=== PATIENT | female | born 1935 | race Two or more races ===

== ENCOUNTER 2023-06-23 22:47 | Inpatient (IN) | payer OTHER, MEDICAID ==
[~2023-06-23] VITALS: Ht 160 cm; Wt 79.0 kg
[2023-06-23] MEDS ORDERED: NITROGLYCERIN 0.4 MG SL TAB SL PRN (23:30)
[2023-06-23] MEDS ORDERED: IPRATROPIUM BROM 0.5 MG/2.5ML INH SOL NEB PRN (23:30)
[2023-06-23] MEDS ORDERED: hydrALAZINE HCL 20 MG/ML VL IV PRN (23:30)
[2023-06-23] MEDS ORDERED: MORPHINE SULFATE INJ 2 MG/ml SYRG IV PRN (23:30)
[2023-06-23] MEDS ORDERED: DEXTROSE (50%) 50ML SYRG IV PRN (23:30)
[2023-06-23] MEDS ORDERED: HYDROcodone-ACET 5/325MG TAB PO PRN (23:30)
[2023-06-23] MEDS ORDERED: ALBUTEROL SULF 2.5 MG/0.5ML(0.5%) NEB SOLN NEB PRN (23:30)
[2023-06-23] MEDS ORDERED: DOCUSATE SOD 100 MG CAP PO PRN (23:30)
[2023-06-23] MEDS ORDERED: ONDANSETRON HCL 4 MG/2 ML VIAL IV PRN (23:30)
[2023-06-23] MEDS ORDERED: ACETAMINOPHEN 325 MG TAB PO PRN (23:30)
[2023-06-23 23:54] VITALS: BP 154/74; PULSE 71; PULSE 85; RESP 18; TEMP 97.7
[2023-06-24] VITALS (12 sets, daily range): BP systolic 122–152; BP diastolic 64–71; PULSE 71–81; RESP 16–20; TEMP 97.4–97.8; O2SAT 91–100
[2023-06-24] MEDS ORDERED: cefTRIAXone 1GM/50ML D5W 50 ML IV SCH (00:57)
[2023-06-24] MEDS ORDERED: AZITHROMYCIN 500MG/ 250ML 250 ML IV SCH (02:00)
[2023-06-24] MEDS ORDERED: CEFP200T15 PO (02:38)
[2023-06-24] MEDS ORDERED: NITR1CAP23 GT (02:44)
[2023-06-24] MEDS ORDERED: DAPA1TAB4 PO (02:46)
[2023-06-24] MEDS ORDERED: LABE200T7 PO (02:46)
[2023-06-24] MEDS ORDERED: ASPI81CH59 PO (02:47)
[2023-06-24] MEDS ORDERED: BENZ100C97 PO (02:48)
[2023-06-24] MEDS ORDERED: CHOL20007 PO (02:49)
[2023-06-24] MEDS ORDERED: GLIP10TA21 PO (02:50)
[2023-06-24] MEDS: methylPREDNISolone SOD SUCC 40 MG/ML VL IV SCH ×3 (06:00→22:00)
[2023-06-24 07:09] LABS: BUN/Creatinine Ratio 25.4 (10.0-20.0); Calcium 8.4 mg/dL (8.5-10.1); Potassium 3.6 mmol/L (3.5-5.1)
[2023-06-24] MEDS: FUROSEMIDE 40 MG/4 ML VIAL IV SCH ×2 (07:17→19:00)
[2023-06-24] MEDS: InsuLIN REG 1unit/0.01ml Soln (100units/ml) SC SCH ×3 (07:18→19:01)
[2023-06-24] MEDS: ACCU-CHEK COMFORT CURVE STRIP VI SCH ×3 (07:20→22:10)
[2023-06-24] MEDS ORDERED: ENOXAPARIN SOD 40 MG/0.4 ML SYRINGE SC SCH (10:00)
[2023-06-24] MEDS: PANTOPRAZOLE 40 MG/10 ML VIAL INJ IV SCH (10:18)
[2023-06-24] MEDS: POTASSIUM CHL 20 Meq TABLET PO SCH (10:18)
[2023-06-24 12:29] LABS: Basophils # (auto) 0 10 ^3/uL (0-0.2); Basophils % (auto) 0.1 % (0.0-2.0); Eosinophils # (auto) 0 10 ^3/uL (0-0.8); Eosinophils % (auto) 0.1 % (0.0-7.0); Hematocrit 39.3 % (36.0-46.0); Lymphocytes # (auto) 0.6 10 ^3/uL (0.4-5.4); Lymphocytes % (auto) 5.9 % (10.0-50.0); Mean Corpuscular Hemoglobin 31.9 pg (28.0-32.0); Mean Corpuscular Hgb Conc. 33.1 g/dL (32.0-36.0); Mean Corpuscular Volume 96.4 fL (80.0-100.0); Monocytes # (auto) 0.1 10 ^3/uL (0-1.3); Monocytes % (auto) 1.4 % (0.0-12.0); Neutrophils # (auto) 9.2 10 ^3/uL (1.6-8.6); Neutrophils % (auto) 92.5 % (37.0-80.0); Nucleated Red Blood Cells % 0.1 %; Red Blood Cells 4.08 10^6/uL (4.0-5.20); Red Cell Distribution Width 14.2 % (11.8-14.3); White Blood Cell 9.9 10^3/uL (4.4-10.8)
[2023-06-24] MEDS ORDERED: MULT-1018 PO (17:30)
[2023-06-24 17:56] LABS: Urine Bacteria FEW /hpf (None Seen); Urine Blood Negative /uL (Negative); Urine Clarity Clear (Clear); Urine Color Straw (Yellow); Urine Hyaline Cast FEW /lpf (0 - 2); Urine Protein, UAD Negative (Negative); Urine Specific Gravity 1.019 (1.001-1.035); Urine Urobilinogen Normal (Negative); Urine WBC 1 /hpf (0 - 5)
[2023-06-24] MEDS ORDERED: DEXTROSE (50%) 50ML SYRG IV PRN (18:45)
[2023-06-24] MEDS: ASPirin 81 mg TAB PO SCH (19:00)
[2023-06-24] MEDS: IPRATROPIUM BROM 0.5 MG/2.5ML INH SOL NEB SCH (19:34)
[2023-06-24] MEDS: ALBUTEROL SULF 2.5 MG/0.5ML(0.5%) NEB SOLN NEB SCH (19:34)
[2023-06-24] MEDS ORDERED: InsuLIN REG 1unit/0.01ml Soln (100units/ml) SC SCH (22:00)
[2023-06-24] MEDS: DOXYCYCLINE 100 MG TAB/CAP PO SCH (22:07)
[2023-06-24] MEDS: LABETALOL HCL 200 MG TAB PO SCH (22:10)
[2023-06-25] VITALS (10 sets, daily range): BP systolic 117–125; BP diastolic 61–65; PULSE 70–78; RESP 16–20; TEMP 97.4–97.8; O2SAT 94–99
[2023-06-25] MEDS: methylPREDNISolone SOD SUCC 40 MG/ML VL IV SCH ×2 (05:55→12:27)
[2023-06-25] MEDS: FUROSEMIDE 40 MG/4 ML VIAL IV SCH ×2 (05:55→18:00)
[2023-06-25 06:16] LABS: Basophils # (auto) 0 10 ^3/uL (0-0.2); Basophils % (auto) 0.2 % (0.0-2.0); Eosinophils # (auto) 0 10 ^3/uL (0-0.8); Eosinophils % (auto) 0.1 % (0.0-7.0); Hematocrit 37.5 % (36.0-46.0); Hemoglobin 12.6 g/dL (12.2-16.2); Lymphocytes # (auto) 1.2 10 ^3/uL (0.4-5.4); Lymphocytes % (auto) 8.5 % (10.0-50.0); Mean Corpuscular Hemoglobin 31.8 pg (28.0-32.0); Mean Corpuscular Hgb Conc. 33.7 g/dL (32.0-36.0); Mean Corpuscular Volume 94.4 fL (80.0-100.0); Monocytes # (auto) 1.2 10 ^3/uL (0-1.3); Monocytes % (auto) 8.4 % (0.0-12.0); Neutrophils # (auto) 11.6 10 ^3/uL (1.6-8.6); Neutrophils % (auto) 82.8 % (37.0-80.0); Nucleated Red Blood Cells % 0.1 %; Red Blood Cells 3.98 10^6/uL (4.0-5.20); Red Cell Distribution Width 13.7 % (11.8-14.3)
[2023-06-25 06:30] LABS: Potassium 3.4 mmol/L (3.5-5.1)
[2023-06-25] MEDS: ACCU-CHEK COMFORT CURVE STRIP VI SCH ×3 (06:35→17:00)
[2023-06-25] MEDS: InsuLIN REG 1unit/0.01ml Soln (100units/ml) SC SCH ×3 (06:35→17:00)
[2023-06-25 06:39] LABS: BUN/Creatinine Ratio 46.2 (10.0-20.0); Calcium 8.4 mg/dL (8.5-10.1)
[2023-06-25] MEDS: ALBUTEROL SULF 2.5 MG/0.5ML(0.5%) NEB SOLN NEB SCH ×2 (06:50→12:24)
[2023-06-25] MEDS: IPRATROPIUM BROM 0.5 MG/2.5ML INH SOL NEB SCH ×2 (06:50→12:22)
[2023-06-25] MEDS: PANTOPRAZOLE 40 MG/10 ML VIAL INJ IV SCH (09:26)
[2023-06-25] MEDS: POTASSIUM CHL 20 Meq TABLET PO SCH (09:26)
[2023-06-25] MEDS: DOXYCYCLINE 100 MG TAB/CAP PO SCH (09:26)
[2023-06-25] MEDS: ASPirin 81 mg TAB PO SCH (09:28)
[2023-06-25] MEDS: LABETALOL HCL 200 MG TAB PO SCH (09:28)
[2023-06-25] MEDS ORDERED: OXYB5TAB24 PO (09:59)
[2023-06-25] MEDS ORDERED: SPIR25TA PO (09:59)
[2023-06-28] MEDS ORDERED: CIPR-173 PO (15:36)
== END 2023-06-25 17:30 | disposition home or self-care (01) | DRG 291 ==
LOC: TELE-CENTR 23:08
PROVIDERS: ADMIT Hospitalist; ATTEND Hospitalist
DX: I13.0 Hypertensive heart and chronic kidney disease with heart failure and stage 1 through stage 4 chronic kidney disease, or unspecified chronic kidney disease (principal); I50.31 Acute diastolic (congestive) heart failure; E87.1 Hypo-osmolality and hyponatremia; R06.03 Acute respiratory distress; E66.9 Obesity, unspecified; N18.9 Chronic kidney disease, unspecified; E11.22 Type 2 diabetes mellitus with diabetic chronic kidney disease; Z79.82 Long term (current) use of aspirin; Z79.899 Other long term (current) drug therapy; Z82.5 Family history of asthma and other chronic lower respiratory diseases; Z68.30 Body mass index [BMI] 30.0-30.9, adult
CPT/HCPCS: 36415; 80048; 81001; 82962; 85025; 87086; 87088; 87186; 93306; 93970; 94640; 97163; C9113; G0378; J0696; J1815